=== PATIENT | female | born 1990 | race Caucasian/White ===

== ENCOUNTER 2019-09-13 17:47 | Outpatient (CLI) | payer OTHER, SELFPAY ==
--- NOTE | ~2019-09-13 | XR_ITS ---
EXAMINATION: SACRUM/COCCYX DATE: 09/13/2019 18:01 INDICATION: New onset of low back pain. Injury 2 years ago. TECHNIQUE: Three views sacrum/coccyx FINDINGS: No prior studies for comparison. There is no displaced fracture of the sacrum. The coccyx demonstrates overall normal morphology with out acute angulation. IMPRESSION: 1. No acute displaced osseous abnormality of the sacrum. Suspicion for occult or nondisplaced sacral fracture can either be evaluated with CT or MRI. 2. Grossly normal morphology to the coccyx without acute angulation. However, due to the wide range of normal variation of the coccyx, acute injury would be best evaluated by clinical examination and patient's symptoms. Reviewed, dictated and finalized at location A. ADER OPERATOR
== END 2019-09-13 17:48 | disposition home or self-care (01) ==
LOC: ANHIMG 17:51
PROVIDERS: PCP Family Medicine; Visit Provider Nurse Practitioner Family
DX: M53.3 Sacrococcygeal disorders, not elsewhere classified (principal)
CPT/HCPCS: 72220

== ENCOUNTER 2019-09-20 18:51 | Emergency (ER) | payer OTHER, SELFPAY ==
[2019-09-20 19:02] VITALS: BP 121/74; PULSE 87; RESP 16; TEMP 37.2; O2SAT 98
--- NOTE | 2019-09-20 20:01 | ED.GENADULT ---
HPI - General Adult General Chief complaint: Upper Respiratory Infection Stated complaint: sore throat michelle chills body aches Time Seen by Provider: 09/20/19 19:54 Source: patient and RN notes reviewed Mode of arrival: ambulatory Limitations: no limitations History of Present Illness HPI narrative: 29-year-old female presents with complains of sore throat, body aches, fatigue, fever and chils, dry cough, and intermittent headache (not the worst of her life) for 3 days. Ibuprofen (early this a.m.) and Tylenol (last today at 1700) with little relief. Rachael was treated at her PMD office on 09/19/19 per patient she had NEGATIVE FLU and STREP tests. Constant dry cough. Rhinorrhea and nasal congestion. Sore throat. Low-grade fever, highest 99.8 with intermittent chills. No drooling, neck or throat swelling. No chest pain, wheezing, or shortness of breath. No exacerbation factories. Denies nausea, vomiting, and abdominal pain. Tolerating liquids well. Rachael denies being , LMP 09/19/2019 and on control. Some parts of this dictation were generated by voice recognition software and may contain typographical and/or grammatical inaccuracies. Related Data Home Medications Medication Instructions Recorded Confirmed buspirone 5 mg TID 08/09/19 09/20/19 desog-e.estradiol/e.estradiol 1 tablet DAILY 08/09/19 09/20/19 [Yodit (28)] vilazodone [Viibryd] 20 mg DAILY 08/09/19 09/20/19 aripiprazole 5 mg tablet 5 mg PO DAILY 08/29/19 09/20/19 diclofenac sodium 1 % TOPICAL BID 09/20/19 09/20/19 methylprednisolone 4 mg DAILY 09/20/19 09/20/19 Allergies Allergy/AdvReac Type Severity Reaction Status Date / Time No Known Allergies Allergy Verified 09/20/19 18:54 Review of Systems Review of Systems: Narrative: CONSTITUTIONAL: Complains of low-grade fever, fatigue, intermittent chills. Denies sweats. EYES: Denies visual changes, redness, discharge. ENT: Complains of rhinorrhea, congestion, sore throat. Denies otalgia. CARDIOVASCULAR: Denies chest pain, palpitations, edema. RESPIRATORY: Denies dyspnea, wheezing. Complains of dry cough. GASTROINTESTINAL: Denies abdominal pain, nausea, vomiting, diarrhea. GENITOURINARY: Denies dysuria, hematuria, abnormal discharge. SKIN: Denies rash or itching. MUSCULOSKELETAL: Denies acute back pain, joint pain. Complains of myalgia. NEUROLOGIC: Denies numbness or focal weakness. Complains of intermittent headaches. PSYCHIATRIC: Denies anxiety or depression. All systems reviewed & are unremarkable except as noted in HPI and below PMFSH Past Medical History Medical History ADHD Depression Kidney stones Ovarian cyst Surgical History Surgical History History of urethral stent Status post surgical removal of both fallopian tubes Social History Social History Social History: Smoking status: Never smoker Second hand tobacco smoke exposure: No Alcohol intake: current Substance use: never Substance use type: does not use Gender identity (if verbalized by the patient): Female Comments At time of signature, agree with nurse past medical, surgical, social, and family history. There is no relevant family history pertinent to the presenting complaint. Exam Narrative: Exam Narrative: GENERAL: This is a well-nourished, well-developed patient, in no apparent distress. Talks in full sentences and ambulates with steady gait without dyspnea. HEAD: normocephalic, atraumatic. EYES: PERRL. Sclera clear/white. Vision is grossly intact. EARS: External ears normal, auditory canals clear and without drainage, TMs normal without perforation. Hearing grossly intact. NOSE: External nose normal with no obvious nasal discharge, nares with moderate redness and enlarged turbinates, clear rhinorrhea. THROAT
== END 2019-09-20 20:07 | disposition home or self-care (01) ==
PROVIDERS: Emergency Provider Nurse Practitioner Family; PCP Family Medicine
DX: B34.9 Viral infection, unspecified (principal)
CPT/HCPCS: 99213; G0463

== ENCOUNTER 2019-12-01 08:48 | Outpatient (CLI) | payer OTHER, SELFPAY ==
--- NOTE | ~2019-12-01 | MR_ITS ---
EXAMINATION: MR ankle LT wo con DATE: 12/01/2019 09:53 INDICATION: Plantar fascial fibromatosis TECHNIQUE: Magnetic resonance imaging (MRI) of the left ankle was performed without intravenous contr ast. Sequences included sagittal, coronal, and axial proton-density weighted fast spin echo without a nd with fat saturation. COMPARISON: None. FINDINGS: Medial ankle ligaments: Deep and superficial deltoid ligaments as well as the spring ligament are normal. Lateral ankle ligaments: The anterior and posterior inferior tibiofibular ligaments are normal. The anterior talofibular, calc aneofibular and posterior talofibular ligaments are normal. Tendons: Mild thickening and increased signal in the distal Achilles tendon consistent mild tendinosis without discrete tear. The peroneus longus and brevis tendons are normal. The tibialis anterior and extensor hallucis longus and extensor digitorum longus tendons are normal. The tibialis posterior, flexor dig itorum longus and flexor hallucis longus tendons are normal. Plantar fascia: Mild soft tissue edema and minimal marrow edema surrounding the calcaneal origin of the proximal plan tar aponeurosis consistent with mild acute plantar fasciitis. The aponeurosis appears otherwise antonio l with no tear, thickening or significant increased intrasubstance signal. Bones/other: Bone alignment is normal. No fracture or pathologic marrow replacing process. Joint spaces are normal . Fluid: Physiologic amount fluid in the joint spaces. No bursitis or other abnormal fluid collections. IMPRESSION: 1. Mild acute plantar fasciitis without discrete tear or fibromatosis. 2. Mild distal Achilles tendinosis also without discrete tear. Reviewed, dictated and finalized at location A.
== END 2019-12-01 08:49 | disposition home or self-care (01) ==
PROVIDERS: PCP Family Medicine; Visit Provider Student in an Organized Health Care Education/Training Program
DX: M72.2 Plantar fascial fibromatosis (principal); M25.572 Pain in left ankle and joints of left foot; M79.672 Pain in left foot
CPT/HCPCS: 73721

== ENCOUNTER 2020-01-20 01:50 | Emergency (ER) | payer OTHER, SELFPAY ==
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
[2020-01-20 01:51] VITALS: BP 126/78; PULSE 98; RESP 18; TEMP 36.8; O2SAT 99
--- NOTE | 2020-01-20 01:58 | PC.NURSE ---
C-collar in place
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
[2020-01-20 03:00] VITALS: BP 127/87; PULSE 88; RESP 13; O2SAT 98
== END 2020-01-20 03:00 | disposition home or self-care (01) ==
PROVIDERS: Emergency Provider Emergency Medicine; PCP Family Medicine
DX: M54.2 Cervicalgia (principal); M54.6 Pain in thoracic spine; S69.91XA Unspecified injury of right wrist, hand and finger(s), initial encounter; F32.9 Major depressive disorder, single episode, unspecified; F90.9 Attention-deficit hyperactivity disorder, unspecified type; Z87.442 Personal history of urinary calculi; W16.022A Fall into swimming pool striking bottom causing other injury, initial encounter; W16.012A Fall into swimming pool striking water surface causing other injury, initial encounter
CPT/HCPCS: 72125; 72128; 73130; 99284; L0140

== ENCOUNTER 2021-03-23 20:37 | Emergency (ER) | payer OTHER, SELFPAY ==
[2021-03-23 20:39] VITALS: BP 136/71; PULSE 100; RESP 16; TEMP 36.6; O2SAT 100
--- NOTE | 2021-03-23 22:59 | ED.SKABFB ---
HPI - Skin/Abscess/Foreign Bdy General Chief complaint: Skin/Abscess/Foreign Body Stated complaint: large bump in bikini area Time Seen by Provider: 03/23/21 22:00 Source: patient and RN notes reviewed Mode of arrival: ambulatory Limitations: no limitations History of Present Illness HPI narrative: This is a 31 year old female who presents for evaluation of possible cyst. Patient states 1 week ago she noticed small bump to right inguinal area. She reports it has gotten slightly bigger and it is mild tender. She thinks it is ingrown hair. She denies drainage, nausea, vomiting or fever . Related Data Home Medications Medication Instructions Recorded Confirmed buspirone 5 mg TID 08/09/19 09/20/19 desog-e.estradiol/e.estradiol 1 tablet DAILY 08/09/19 09/20/19 [Viorele (28)] vilazodone [Viibryd] 20 mg DAILY 08/09/19 09/20/19 aripiprazole 5 mg tablet 5 mg PO DAILY 08/29/19 09/20/19 dextroamphetamine-amphetamine PO 01/20/20 [Adderall XR] Allergies Allergy/AdvReac Type Severity Reaction Status Date / Time No Known Allergies Allergy Verified 01/29/20 15:59 Review of Systems Review of Systems: All systems reviewed & are unremarkable except as noted in HPI and below PMFSH Past Medical History Medical History (Updated 03/24/21 @ 00:19 by Paty Chen MD) ADHD Depression Kidney stones Ovarian cyst Surgical History Surgical History History of urethral stent Status post surgical removal of both fallopian tubes Social History Social History (Updated 01/29/20 @ 16:01 by Dayana Reilly) Social History: Smoking status: Never smoker Second hand tobacco smoke exposure: No Alcohol intake: current Drinks per week: 2 Alcohol use details: twice a month Substance use: never Substance use type: does not use Gender identity (if verbalized by the patient): Female Exam Const: General: no acute distress and alert Orientation/consciousness: patient oriented x3 Eyes: EOM: EOMs intact bilaterally Resp: Effort & Inspection: normal respiratory effort Skin: Other: right inner thigh, groin with small lump sub centimeter, no drainage, no erythema, Neuro: General: patient oriented x3, moves all extremities and CN's II-XI intact bilaterally Course Reevaluation(s) Reevaluation #1: I discussed with patient no abscess drainage found. I Discussed discharge management with warm compressess Date: 03/24/21 Time: 00:15 Vital Signs Vital signs: Vital Signs Temperature 97.9 F 03/23/21 20:39 Pulse Rate 100 03/23/21 20:39 Respiratory Rate 16 03/23/21 20:39 Blood Pressure 136/71 03/23/21 20:39 Pulse Oximetry 100 03/23/21 20:39 Temperature 97.9 F 03/23/21 20:39 Pulse Rate 100 03/23/21 20:39 Respiratory Rate 16 03/23/21 20:39 Blood Pressure 136/71 03/23/21 20:39 Pulse Oximetry 100 03/23/21 20:39 Procedures Abscess I/D other: Date of Incision: 03/24/21 Time of Incision: 00:15 Side (if applicable): right Local Anesthetic: lidocaine 1% and with epi Amount of anesthesia used (mL): 1 Technique: incised with #11 blade Amount of fluid expressed (mL): 1 Irrigation: No Packing used?: none I&D Results: Blood Discharge Plan Discharge Clinical Impression: Cyst of skin Patient Disposition: Home, Self-Care Condition: Stable Instructions: Antibiotic Form, Incision and Drainage (ED) Additional Instructions: Today you have an incision and drainage performed. Please read instructions. Change bandage daily as needed. No sign of infection at this time. Take ibuprofen as needed for pain. Apply warm compresses twice daily. Prescriptions: No Action aripiprazole [Abilify] 5 mg tablet 5 mg PO DAILY RF: 0 carisoprodol [Soma] 350 mg tablet 350 mg PO .bid PRN (Reason: muscle pain) Qty: 30 RF: 0 busp
[2021-03-24] MEDS: POVIDONE-IODINE 10% SOLUTION 118 ML BOTTLE TOPICAL (00:17)
[2021-03-24] MEDS: LIDO 1%/EPINEPHRINE 1:100,000 20 ML VIAL INFILTRATE (00:17)
== END 2021-03-24 00:28 | disposition home or self-care (01) ==
PROVIDERS: Emergency Provider General Practice; PCP Family Medicine
DX: L72.3 Sebaceous cyst (principal); F90.9 Attention-deficit hyperactivity disorder, unspecified type; F32.9 Major depressive disorder, single episode, unspecified; Z87.442 Personal history of urinary calculi
CPT/HCPCS: 10060; 99283

== ENCOUNTER 2021-05-01 05:10 | Observation (INO) | payer OTHER, SELFPAY ==
[2021-05-01] VITALS (12 sets, daily range): BP systolic 104–146; BP diastolic 64–90; PULSE 69–123; RESP 11–20; TEMP 36.4–37.1; O2SAT 95–100; BMI 32.0
--- NOTE | 2021-05-01 05:13 | ECG_ITS ---
Measurements Intervals [place] Rate: 111 P: 47 VA: 117 QRS: 85 QRSD: 94 T: -14 QT: 347 QTc: 473 Interpretive Statements SINUS TACHYCARDIA WITH SHORT VA INTERVAL LEFT ATRIAL ENLARGEMENT BORDERLINE ST-T WAVE ABNORMALITY- ANTEROLAT/INF LEADS BASELINE ARTIFACT- V1-V2, V4 ABNORMAL ECG Electronically Signed On 05-01-2021 5:58:52 CDT by Francisco Javier Shaw D.O.
--- NOTE | 2021-05-01 05:20 | PC.NURSE ---
Jess[facility] @ Poison Control Subtoxic on Tylenol - 6gm Toxic on Soma - 3200mg - peak 2-6 hours Subtoxic on Toradol - 45 min peak Subtoxic on Codeine - peak 1 hour, half life is 3 hours Symptomatic Support only Repeat Tylenol Level 0730
--- NOTE | 2021-05-01 05:24 | PC.NURSE ---
Pt valuables stored in ED locked cabinet. Jewelry, clothes, phone, purse.
--- NOTE | 2021-05-01 05:24 | ED.GENADULT ---
HPI - General Adult General Chief complaint: Overdose Stated complaint: suicidal attempt - ingestion History of Present Illness HPI narrative: Patient 31-year-old female presents the emergency department with chief complaint of overdose. The patient reports that she took a number of Tylenol 3 Soma and Toradol. Patient states she took this about 3:30 in the morning in an attempt to harm herself. The patient left a note to her family and EMS was called. Upon EMS arrival the patient was slightly drowsy but protecting her airway. Patient is able to answer some questions Related Data Home Medications Medication Instructions Recorded Confirmed buspirone 5 mg TID 08/09/19 09/20/19 desog-e.estradiol/e.estradiol 1 tablet DAILY 08/09/19 09/20/19 [Viorele (28)] vilazodone [Viibryd] 20 mg DAILY 08/09/19 09/20/19 aripiprazole 5 mg tablet 5 mg PO DAILY 08/29/19 09/20/19 dextroamphetamine-amphetamine PO 01/20/20 [Adderall XR] Allergies Allergy/AdvReac Type Severity Reaction Status Date / Time No Known Allergies Allergy Verified 05/01/21 05:48 Review of Systems Review of Systems: A 10 system review of systems was completed on the patient and is negative except for what is stated in the HPI. Nursing and ancillary documentation was reviewed. [facility] Past Medical History Medical History (Updated 05/01/21 @ 06:40 by Misael Guadarrama MD) ADHD Depression Kidney stones Ovarian cyst Surgical History Surgical History History of urethral stent Status post surgical removal of both fallopian tubes Social History Social History Social History: Smoking status: Never smoker Second hand tobacco smoke exposure: No Alcohol intake: current Drinks per week: 2 Alcohol use details: twice a month Substance use: never Substance use type: marijuana Gender identity (if verbalized by the patient): Female Exam Narrative: GENERAL: Well-appearing, well-nourished, and in no acute distress. HEAD: Normocephalic, atraumatic. EYES: PERRLA and EOMI. ENT: Nares clear, no rhinorrhea or epistaxis. Mucous membranes moist. NECK: Supple. CHEST: Clear to auscultation. No respiratory distress. HEART: Regular rate and rhythm. No murmur heard. Normal peripheral pulses. ABDOMEN: Soft, nontender, nondistended, normal active bowel sounds. EXTREMITIES: Normal range of motion. No edema. SKIN: Warm, dry, no rash. NEURO: No focal deficits. Alert and oriented x3. PSYCH: Depressed mood. Course Vital Signs Vital signs: Vital Signs Temperature 37.1 C 05/01/21 05:07 Pulse Rate 123 H 05/01/21 05:07 Respiratory Rate 15 05/01/21 05:07 Blood Pressure 104/90 05/01/21 05:07 Pulse Oximetry 96 05/01/21 05:07 Temperature 37.1 C 05/01/21 05:07 Pulse Rate 123 H 05/01/21 05:07 Respiratory Rate 16 05/01/21 05:07 Blood Pressure 104/90 05/01/21 05:07 Pulse Oximetry 96 05/01/21 05:07 Medical Decision Making Vital Signs Vital Signs: Vital Signs Temperature 37.1 C 05/01/21 05:07 Pulse Rate 123 H 05/01/21 05:07 Respiratory Rate 15 05/01/21 05:07 Blood Pressure 104/90 05/01/21 05:07 Pulse Oximetry 96 05/01/21 05:07 Temperature 37.1 C 05/01/21 05:07 Pulse Rate 123 H 05/01/21 05:07 Respiratory Rate 16 05/01/21 05:07 Blood Pressure 104/90 05/01/21 05:07 Pulse Oximetry 96 05/01/21 05:07 Lab Data Result diagrams: 05/01/21 06:06 05/01/21 06:06 Labs: Lab Results 05/01/21 05/01/21 05/01/21 Range/Units 06:06 06:06 06:06 WBC 8.4 (4.5-10.0) K/mm3 RBC 5.07 (4.2-5.4) M/mm3 Hgb 14.2 (12.0-15.0) g/dL Hct 45.1 (37.0-47.0) % MCV 89.0 (80-100) fl MCH 28.0 (26-34) pg MCHC 31.5 L (32-36) g/dl RDW 12.6 (11.5-14.5) % Plt Count 246 (150-375) k/mm3 MPV 9.8
[2021-05-01 06:21] LABS: Basophils Percent Auto 0.5 % (0.2-1.2); Eosinophils Absolute Auto 0.2 K/mm3 (0-0.3); Eosinophils Percent Auto 1.8 % (0-4.4); Hematocrit 45.1 % (37.0-47.0); Hemoglobin 14.2 g/dL (12.0-15.0); Immature Granulocyte Absolute 0.03 K/mm3 (0.00-0.031); Immature Granulocyte Percent A 0.4 % (0-0.5); Lymphocytes Absolute Auto 3.61 K/mm3 (0.9-3.2); Lymphocytes Percent Auto 42.8 % (18.3-44.2); Mean Corpuscular HGB Conc 31.5 g/dl (32-36); Mean Platelet Volume 9.8 fl (7.4-10.4); Monocytes Absolute Auto 0.5 K/mm3 (0.1-0.6); Monocytes Percent Auto 6.2 % (2.6-8.5); Neutrophils Absolute Auto 4.1 K/mm3 (1.3-6.7); Neutrophils Percent Auto 48.3 % (45.5-73.1); Platelet Count Result 246 k/mm3 (150-375); Red Blood Count 5.07 M/mm3 (4.2-5.4); Red Cell Distribution Width 12.6 % (11.5-14.5); White Blood Count 8.4 K/mm3 (4.5-10.0)
[2021-05-01 06:33] LABS: Alanine Aminotransferase 26 U/L (4-35); Albumin Level 4.4 g/dL (3.5-5.1); Alkaline Phosphatase 97 U/L (38-126); Anion Gap 11 mmol/L (8-16); Aspartate Amino Transferase 31 U/L (14-36); Bilirubin,Total 0.9 mg/dL (0.2-1.3); Blood Urea Nitrogen 14 mg/dL (7-17); Calcium 8.9 mg/dL (8.4-10.2); Carbon Dioxide 23 mmol/L (22-30); Chloride 102 mmol/L (98-107); Estimated CRCL calculation 91 ml/min; Estimated Glomerular Filt Rate > 60; Glucose 105 mg/dL (65-110); Potassium 3.7 mmol/L (3.4-5.0); Sodium 136 mmol/L (137-145)
[2021-05-01 06:34] LABS: Acetaminophen 42 ug/mL (10-30); Ethanol < 10 mg/dL (<10); Salicylate < 1.0 mg/dL (2-20)
[2021-05-01 06:53] LABS: Add Urine Microscopic? NO; Appearance Urine Clear (Clear); Bilirubin Urine Negative (Negative); Blood Urine Negative (Negative); Color Urine Yellow (Yellow); Glucose Urine UA Negative (Negative); Ketones Urine Negative (Negative); Leukocyte Esterase Ur Negative LEU/UL (Negative); Nitrate Urine Negative (Negative); Protein Urine Negative (Negative); Specific Grav Ur 1.029 (1.001-1.035); Urobilinogen Urine Negative mg/dL (<2.0)
[2021-05-01 07:09] LABS: Amphetamine Screen Urine Positive (Negative); Barbiturate Screen Urine Negative (Negative); Benzodiazepines Screen Urine Negative (Negative); Cannabinoid Screen Urine Positive (Negative); Cocaine Screen Urine Negative (Negative); Methadone Screen Urine Negative (Negative); Opiate Screen Urine Positive (Negative); Phencyclidine Screen Urine Negative (Negative)
--- NOTE | 2021-05-01 08:27 | PC.NURSE ---
CALL RECEIVED FROM [facility] WITH POISON CONTROL. UPDATES AND LABS REVIEWED. RECOMMENDS REPEAT TYLENOL LEVEL IN THE NEXT COUPLE HOURS TO ENSURE NUMBER IS TRENDING DOWN
--- NOTE | 2021-05-01 09:30 | PC.NURSE ---
pt swabbed for covid for psych placement
--- NOTE | 2021-05-01 09:40 | PM.IMHP ---
H&P: HPI History of Present Illness Date/Time: 05/01/21 09:40 Chief Complaint: Suicide attempt Narrative: Patient is a 31-year-old lady with past medical history of depression, and 1 suicide attempt which was 14 years old presenting following a suicide attempt. She says that she has been very stressed recently, had a Marriage fell apart, and was recently told that she had an STD, which she was not prepared to here, all this caught up to her last night, when she decided to attempt suicide. Did not have any homicidal ideation. Did not have any visual or auditory hallucinations. She took an unknown quantity of Tylenol, she says maybe was about 10 pills or so at around 3:30 a.m. this morning. She also took an unknown quantity of Toradol. Following this, she felt very drowsy, and came to the emergency room at [facility]. Denies any other symptoms, including shortness of breath, chest pain, headache, nausea vomiting, abdominal pain, urinary symptoms, fevers or chills. Past medical history: Significant for depression and prior suicide attempt Allergies: Anaphylactic reaction to nuts Medications: Vilazadone, Wellbutrin, Adderall Family history: Not aware of major problems running in family Social history: Smokes marijuana, denies cocaine heroin or meth. Occasional alcohol, a couple drinks a week. Denies tobacco use. Denies ever having used tobacco. 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 Family is nearby, including ex-, and children. Also has sister in the area, and another 1 in [place]. Surgical history: Fallopian tubes tied, breast augmentation, bunionectomy ER course: Vital signs unremarkable, except for slight tachycardia with heart rate to the low 100s Labs: No leukocytosis, no anemia, no kidney or liver injury, urinalysis unremarkable, urine drug screen showing opiates, amphetamines, cannabinoids, acetaminophen level 42 approximately 3 hours after ingestion, and 30 about 7 hours after ingestion. Review of Systems Review of Systems: All systems reviewed & are unremarkable except as noted in HPI and below PMFSH Past Medical History Medical History (Updated 05/01/21 @ 06:40 by Misael Guadarrama MD) ADHD Depression Kidney stones Ovarian cyst Surgical History Surgical History History of urethral stent Status post surgical removal of both fallopian tubes Social History Social History Social History: Smoking status: Current every day smoker Tobacco type: e-cigarettes/vaping Second hand tobacco smoke exposure: No Additional smoking assessment comments: vapes marijuana Alcohol intake: current Drinks per week: 2 Alcohol use details: twice a month Substance use: never Substance use type: marijuana, painkillers and prescription drug Gender identity (if verbalized by the patient): Female Spiritual care concerns: No Meds Home Medications and Allergies Home Medications Medication Instructions Recorded Confirmed Type buspirone 5 mg TID 08/09/19 09/20/19 History desog-e.estradiol/e.estradiol 1 tablet DAILY 08/09/19 09/20/19 History [Viorele (28)] vilazodone [Viibryd] 20 mg DAILY 08/09/19 09/20/19 History aripiprazole 5 mg tablet 5 mg PO DAILY 08/29/19 09/20/19 History dextroamphetamine-amphetamine PO 01/20/20 History [Adderall XR] carisoprodol 350 mg tablet 350 mg PO .bid PRN #30 tablet 01/29/20 01/29/20 Rx dexamethasone 2 mg tablet See Rx Instructions PO BID #30 07/23/20 Rx tablet Allergies Allergy/AdvReac Type Severity Reaction Status Date / Time No Known Allergies Allergy Verified 05/01/21 05:48 Vital Signs Vital Signs - 24 hr 05/01/21 05:07 05/01/21 06:40 05/01/21 07:45 Temperature 98.7 F Pulse Rate 123 H 93 104 H Respiratory Rate 16 11 L 20 Blood Pressure 104/90 105/6
--- NOTE | 2021-05-01 09:44 | ADMGEN ---
This patient, Rachael Robles, was admitted to Intensive Care Unit-1. Patient/family oriented to hospital policies and general routines including ID bracelet, bed and alarms, visiting hours, pain management, procedures, bathroom and other care routines, personal items, smoking policy, room service/diet, and visiting hours. Information on how to activate the Rapid Response Team has been discussed. Patient/Family are encouraged to report perceived risks to care and to ask questions if they do not understand what they are told or what they should do.
[2021-05-01] MEDS: SODIUM CHLORIDE 0.9% IV 1,000 ML 999 ML IV CONT ×3 (09:48→10:56)
[2021-05-01 10:16] LABS: Acetaminophen 30 ug/mL (10-30)
--- NOTE | 2021-05-01 11:42 | WPDCNINT ---
Assessment and Plan Assessment and plan (1) Polysubstance overdose: Qualifiers: Encounter type: initial encounter Injury intent: intentional self-harm Qualified Code(s): T50.902A - Poisoning by unspecified drugs, medicaments and biological substances, intentional self-harm, initial encounter Code(s): T50.901A - Poisoning by unspecified drugs, medicaments and biological substances, accidental (unintentional), initial encounter Status: Acute Assessment and Plan: Patient with polysubstance overdose with Tylenol#3, Toradol and Soma -initial acetaminophen levels are 42 and repeat levels are normal -poison control was notified and patient was not a candidate for acetylcystine protocol -NSAID ingestion with Toradol will give patient 3 L of IV fluids and allow to flush her kidneys -Soma will probably cause sedation, will continue to monitor any respiratory depression, hypotension. Patient in telemetry -once patient is medically stable she will require care coordination crisis management evaluation (2) Suicidal behavior: Code(s): R45.89 - Other symptoms and signs involving emotional state Status: Acute Assessment and Plan: Suicidal behavior with polysubstance abuse as a above -care coordination and crisis management to evaluate once medically stable (3) Depression: Code(s): F32.9 - Major depressive disorder, single episode, unspecified Status: Acute Assessment and Plan: History of depression (4) ADHD: Code(s): F90.9 - Attention-deficit hyperactivity disorder, unspecified type Status: Acute Assessment and Plan: History of ADHD Additional Plan DVT prophylaxis: SCDs Discussed with patient updated with her condition and plan of care. Code status: Full code Critical care time spent: 41 minutes This dictation may have been done utilizing a voice recognition system. Attempts have been made to correct errors. However, there may be uncorrected grammatical, spelling, and recognition errors present. Due to a high probability of clinically significant, life threatening deterioration, the patient required my highest level of preparedness to intervene emergently and I personally spent this critical care time directly and personally managing the patient. This critical care time included obtaining a history; examining the patient; pulse oximetry; ordering and review of studies; arranging urgent treatment with development of a management plan; evaluation of patient's response to treatment; frequent reassessment; and discussions with other providers. It was exclusive of separately billable procedures and treating other patients and teaching time. Please see Assessment and Plan section and the rest of the note for further information on patient assessment and treatment Clinical Document Improvement Educator Consult Note Consult date: 05/01/21 Time Seen: 09:33 HPI: Rachael Robles is a 31 year old female increase medical history of ADHD, depression with suicide attempt x1 when she was 14 years old presented the ED on 05/01/2021 with polysubstance overdose and suicidal behavior. Patient stated she has been recently stressed on the to the manage from a heart and as she was told she had any STD history stent and tried to commit suicide. The patient is not homicidal. Patient stated she took Tylenol #3 x10 pills, Toradol x 5-6 pills, Soma x8 pills. Patient was drowsy upon arrival to the ER at [facility]. She denies chest pain, shortness of breath, abdominal pain, nausea, vomiting, fevers or chills. Patient states she vapes marijuana, drinks couple of times week. Denies use of any other illicit drugs. patient seen and examined the ICU, above history was obtained by myself. Patient is awake, alert but somnolent. She knows she is in the hospital she knows it is 2020 and she knew Mr. Osorio in the his the president of the [place]. Review of Systems Review of Systems: All systems r
[2021-05-01] MEDS: SODIUM CHLORIDE 0.9% IV 1,000 ML 125 ML IV CONT (13:33)
[2021-05-01] MEDS: ONDANSETRON INJ 4 MG/2 ML VIAL (13:52)
[2021-05-01 19:38] LABS: SARS-CoV-2 RNA PCR Negative
--- NOTE | 2021-05-01 20:30 | PC.NURSE ---
Addendum entered by Echo Faria RN 05/02/21 20:26: Patient verbalizing concerns for childcare because she works 12 hour shifts and has her children on her off days. Encouraged patient to try to relax and focus on her own well-being at this time. Patient having nausea and vomiting. Explained that per hospitalist order this RN has order for IM injection only for anti-emetic medication due to concerns for QT prolongation by hospitalist. Encouraged patient to call this RN if N/V worsened and MD would be contacted to reevaluate. Patient did not want IM injection at this time and is agreeable to plan of care. Original Note: At patient bedside. Explained to patient that crisis and a medicaid billing clerk would come to evaluate her tomorrow and at that time it would be determined what her plan of care would be at that point. Patient states that she feels like a prisoner and doesn't understand why she cannot talk to her children. This RN explained that per hospital policy she cannot make any calls while awaiting clearance for si. Patient alert & oriented asking if this hospital is an [facility] facility.
--- NOTE | 2021-05-01 23:30 | PC.NURSE ---
At patient bedside. CCT stated that patient was asking about her purse an earrings. This RN offered to look in the locked closet, but explained to patient that she cannot be granted access to belongings per hospital SI policy. Patient tearful and guarded stating that It's fine. I'm leaving tomorrow anyway. This RN reminded patient as per earlier conversation that crisis would be out to evaluate her tomorrow to determine options for treatment.
[2021-05-02] MEDS: SODIUM CHLORIDE 0.9% IV 1,000 ML 125 ML IV CONT (00:51)
[2021-05-02 04:23] LABS: Basophils Percent Auto 0.3 % (0.2-1.2); Eosinophils Absolute Auto 0.1 K/mm3 (0-0.3); Eosinophils Percent Auto 2.1 % (0-4.4); Hematocrit 39.6 % (37.0-47.0); Hemoglobin 12.3 g/dL (12.0-15.0); Immature Granulocyte Absolute 0.02 K/mm3 (0.00-0.031); Immature Granulocyte Percent A 0.3 % (0-0.5); Lymphocytes Absolute Auto 2.75 K/mm3 (0.9-3.2); Lymphocytes Percent Auto 41.2 % (18.3-44.2); Mean Corpuscular HGB Conc 31.1 g/dl (32-36); Mean Corpuscular Hemoglobin 28.1 pg (26-34); Mean Corpuscular Volume 90.4 fl (80-100); Monocytes Absolute Auto 0.4 K/mm3 (0.1-0.6); Monocytes Percent Auto 6.3 % (2.6-8.5); Neutrophils Absolute Auto 3.3 K/mm3 (1.3-6.7); Neutrophils Percent Auto 49.8 % (45.5-73.1); Platelet Count Result 173 k/mm3 (150-375); Red Blood Count 4.38 M/mm3 (4.2-5.4); Red Cell Distribution Width 12.7 % (11.5-14.5); White Blood Count 6.7 K/mm3 (4.5-10.0)
[2021-05-02 04:39] LABS: Alanine Aminotransferase 20 U/L (4-35); Alkaline Phosphatase 79 U/L (38-126); Anion Gap 4 mmol/L (8-16); Aspartate Amino Transferase 25 U/L (14-36); Bilirubin,Total 0.1 mg/dL (0.2-1.3); Blood Urea Nitrogen 6 mg/dL (7-17); Carbon Dioxide 24 mmol/L (22-30); Chloride 110 mmol/L (98-107); Estimated CRCL calculation 106 ml/min; Estimated Glomerular Filt Rate > 60; Glucose 97 mg/dL (65-110); Magnesium 1.9 mg/dL (1.6-2.3); Phosphorus 3.2 mg/dL (2.5-4.5); Potassium 4.1 mmol/L (3.4-5.0); Sodium 138 mmol/L (137-145)
[2021-05-02] MEDS: HALOPERIDOL LACTATE 5 MG/ML VIAL IM (05:00)
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
[2021-05-02] MEDS: diphenhydrAMINE HCl INJ 50 MG/ML VIAL 25 MG IV PUSH (05:34)
[2021-05-02] MEDS: LORazepam INJ (*CRX) 2 MG/ML VIAL 1 MG IM (05:34)
[2021-05-02 05:36] VITALS: BP 136/90; PULSE 83; RESP 18; TEMP 36.5; O2SAT 98
--- NOTE | 2021-05-02 06:18 | PM.EVENT ---
Event Note Event Note Event Note: Patient has been released from hard restraints she has verbalized has no intention to hurt herself or others. Patient with no injuries she is awake and alert. Sitter 1:1 at all times
[2021-05-02 08:00] VITALS: RESP 16
--- NOTE | 2021-05-02 09:01 | PC.NURSE ---
Addendum entered by Onesimo Rodas RN 05/02/21 09:19: Velasquez stated she was cleared after we received her 2nd tylenol level that had declined at 0943 Original Note: Spoke with Velasquez at Poison Control and states they had signed off on the case yesterday as her Tylenol levels were subtoxic and never required medical intervention.
[2021-05-02 16:00] VITALS: BP 108/82; PULSE 88; RESP 14; TEMP 36.1; O2SAT 98
--- NOTE | 2021-05-02 18:29 | PM.TDS ---
Transfer Discharge Sum: Prov Provider Date of admission: 05/01/21 07:34 Primary care physician: Sofia Scanlon MD Admitting clinician: Concetta Laguerre MD Consults: 05/01/21 07:18 Consult to Physician Routine Comment: Consulting Provider: Ashlie Herrera Reason for consultation: ICU patient, poly substance overdose Has provider been notified: Yes DS: Admitting Diagnosis Discharge Date 05/02/2021 Admitting Diagnosis Suicide attempt Depression ADHD Kidney stones Ovarian cysts DS: Discharge Diagnosis Discharge Diagnosis (1) Polysubstance overdose: Qualifiers: Encounter type: initial encounter Injury intent: intentional self-harm Qualified Code(s): T50.902A - Poisoning by unspecified drugs, medicaments and biological substances, intentional self-harm, initial encounter Code(s): T50.901A - Poisoning by unspecified drugs, medicaments and biological substances, accidental (unintentional), initial encounter Status: Acute Assessment and Plan: Poison control was contacted. Supportive are. She took tylenol 10 pills and an unknown quantity of toradol. (2) Suicidal ideation: Code(s): R45.851 - Suicidal ideations Status: Acute Assessment and Plan: Patient had recent life stressors and had a suicidal gesture. She decided to attempt suicide. She denies homocidal attempt. 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 (5) ADHD: Code(s): F90.9 - Attention-deficit hyperactivity disorder, unspecified type Status: Acute Assessment and Plan: Manage per primary care. currently psychostimulants were held due to acute stress. Transfer Discharge Sum: Med Medications Active and Home Medications: Home Medications desog-e.estradiol/e.estradiol [Viorele (28)] 1 tablet DAILY 08/09/19 [History Confirmed 05/01/21] dextroamphetamine-amphetamine [Adderall XR] 20 mg PO QAM 01/20/20 [History Confirmed 05/01/21] bupropion HCl 150 mg PO QAM 05/01/21 [History Confirmed 05/01/21] omeprazole 40 mg PO BID 05/01/21 [History Confirmed 05/01/21] valacyclovir 1 mg PO BID 05/01/21 [History Confirmed 05/01/21] Active Medications Haloperidol (Haloperidol 5 Mg Tablet) 5 mg PO Q6H PRN PRN Reason: Agitation Sodium Chloride (Normal Saline Iv) 1,000 mls @ 125 mls/hr IV CONT .Q8H SUNNI Last Admin: 05/02/21 00:51 Dose: 125 mls/hr Documented by: Lorazepam (Lorazepam (*Crx) 1 Mg Tablet) 1 mg PO Q4H PRN PRN Reason: Anxiety Trimethobenzamide HCl (Trimethobenzamide Hcl 200 Mg/2 Ml Vial) 200 mg IM Q6H PRN PRN Reason: Nausea And Vomiting Transfer Discharge Sum: Hosp Hospital Course Hospital course: Rachael Robles is a 31-year-old lady with past medical history of depression, and 1 suicide attempt which was 14 years old presenting following a suicide attempt. She says that she has been very stressed recently, after her marriage fell apart, and was recently told that she had an STD, which she was not prepared to hear, all this caught up to her last night, when she decided to attempt suicide. Did not have any homicidal ideation. Did not have any visual or auditory hallucinations. She took an unknown quantity of Tylenol, she says maybe was about 10 pills or so at around 3:30 a.m. this morning. She also took an unknown quantity of Toradol. Following this, she felt very drowsy, and came to the emergency room at [facility]. Denies any other symptoms, including shortness of breath, chest pain, headache, nausea vomiting, abdominal pain, urinary symptoms, fevers or chills.
--- NOTE | 2021-05-02 19:04 | PC.NURSE ---
Gave report to Maritza, nurse at [place], Dr. Rodriguez is the accepting doctor. Pt informed of planned transfer to [place], room 205 and agrees to the transfer
--- NOTE | 2021-05-02 20:16 | PC.NURSE ---
Pt picked up by ambulance for transport to [place] at 2012.
--- NOTE | 2021-05-02 20:20 | PC.NURSE ---
[facility] ([phone]) notified that pt has left via EMS at 2013.
== END 2021-05-02 20:13 ==
LOC: ANHED 06:40 → ANHICU 11:36
PROVIDERS: Internal Medicine; Admitting Provider Internal Medicine; Emergency Provider Emergency Medicine; PCP Family Medicine; Visit Provider Internal Medicine
DX: T39.1X2A Poisoning by 4-Aminophenol derivatives, intentional self-harm, initial encounter (principal); T39.012A Poisoning by aspirin, intentional self-harm, initial encounter; R45.851 Suicidal ideations; F32.9 Major depressive disorder, single episode, unspecified; F17.290 Nicotine dependence, other tobacco product, uncomplicated; F90.9 Attention-deficit hyperactivity disorder, unspecified type; Z20.822 Contact with and (suspected) exposure to COVID-19
CPT/HCPCS: 36415; 51701; 80053; 80307; 81003; 81025; 83735; 84100; 84443; 85025; 93005; 96361; 96372; 96374; 99285; C9803; G0378; J1200; J1630; J2060; J2405; J7030; U0003; U0005

== ENCOUNTER 2021-08-17 22:43 | Emergency (ER) | payer OTHER, SELFPAY ==
--- NOTE | 2021-08-17 23:00 | PC.NURSE ---
[facility] ACTIVATED AT THIS TIME.
--- NOTE | 2021-08-17 23:01 | PC.NURSE ---
CALL FOR HELP NOTIFIED AT THIS TIME.
[2021-08-17 23:05] VITALS: BP 135/82; PULSE 92; RESP 18; TEMP 36.8; O2SAT 100
--- NOTE | 2021-08-17 23:20 | PC.NURSE ---
EDP Dr Moran at bedside to assess pt/discuss POC.
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
--- NOTE | 2021-08-17 23:47 | PC.NURSE ---
Call for Help advocate - Ese at pt bedside.
--- NOTE | 2021-08-18 00:03 | PC.NURSE ---
Mariam Johnson arrived to ED and introduced to pt at this time.
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
[2021-08-18] MEDS: ONDANSETRON HCL ODT 4 MG TABLET PO (04:10)
[2021-08-18] MEDS: LIDOCAINE HCL 1% LOCAL INJ 20 ML VIAL 2.1 ML XX (04:10)
[2021-08-18] MEDS: cefTRIAXone 1 GM VIAL 0.5 GM IM (04:10)
[2021-08-18] MEDS: DOXYCYCLINE HYCLATE 100 MG TABLET PO (04:10)
[2021-08-18 04:27] LABS: Basophils Absolute Auto 0.1 K/mm3 (0.0-0.1); Basophils Percent Auto 0.6 % (0.2-1.2); Eosinophils Absolute Auto 0.2 K/mm3 (0-0.3); Eosinophils Percent Auto 2.1 % (0-4.4); Hemoglobin 12.7 g/dL (12.0-15.0); Immature Granulocyte Absolute 0.03 K/mm3 (0.00-0.031); Immature Granulocyte Percent A 0.3 % (0-0.5); Lymphocytes Absolute Auto 4.07 K/mm3 (0.9-3.2); Lymphocytes Percent Auto 40.7 % (18.3-44.2); Mean Corpuscular HGB Conc 32.6 g/dl (32-36); Mean Corpuscular Volume 86.1 fl (80-100); Mean Platelet Volume 9.5 fl (7.4-10.4); Monocytes Absolute Auto 0.7 K/mm3 (0.1-0.6); Neutrophils Absolute Auto 4.9 K/mm3 (1.3-6.7); Neutrophils Percent Auto 49.3 % (45.5-73.1); Platelet Count Result 269 k/mm3 (150-375); Red Blood Count 4.53 M/mm3 (4.2-5.4); Red Cell Distribution Width 12.6 % (11.5-14.5)
[2021-08-18 04:35] LABS: INR 1.2; Prothrombin Time 14.9 Seconds (11.1-14.7)
[2021-08-18 04:36] LABS: Partial Thromboplastin Time 32.3 SECONDS (22.3-36.8)
[2021-08-18 04:47] LABS: Alanine Aminotransferase 18 U/L (4-35); Alkaline Phosphatase 92 U/L (38-126); Anion Gap 10 mmol/L (8-16); Aspartate Amino Transferase 22 U/L (14-36); Bilirubin,Total 0.5 mg/dL (0.2-1.3); Blood Urea Nitrogen 14 mg/dL (7-17); Calcium 9.1 mg/dL (8.4-10.2); Carbon Dioxide 22 mmol/L (22-30); Chloride 105 mmol/L (98-107); Estimated CRCL calculation 82 ml/min; Estimated Glomerular Filt Rate > 60; Glucose 102 mg/dL (65-110); Potassium 3.8 mmol/L (3.4-5.0); Sodium 137 mmol/L (137-145)
[2021-08-18] MEDS: EMTRICITABINE-TENOFOVIR 100 MG-150 MG TABLET 2 TAB PO (04:51)
[2021-08-18] MEDS: RALTEGRAVIR 400 MG TABLET PO (04:51)
[2021-08-18 05:17] VITALS: BP 115/59; PULSE 97; RESP 15; O2SAT 100
[2021-08-18 05:27] LABS: HIV 1/2 Ab P24 Ag Result Negative (Negative)
== END 2021-08-18 05:25 | disposition home or self-care (01) ==
PROVIDERS: Emergency Provider Emergency Medicine
DX: Z04.41 Encounter for examination and observation following alleged adult rape (principal); F90.9 Attention-deficit hyperactivity disorder, unspecified type; F32.A Depression, unspecified; Z87.442 Personal history of urinary calculi; F17.290 Nicotine dependence, other tobacco product, uncomplicated
CPT/HCPCS: 36415; 80053; 85025; 85610; 85730; 86703; 96372; 99285; A9270; G0432; J0696

== ENCOUNTER 2022-04-15 09:52 | Outpatient (CLI) | payer OTHER, SELFPAY ==
--- NOTE | ~2022-04-15 | XR_ITS ---
EXAMINATION: XR cervical spine 4-5V DATE: 04/15/2022 10:19 INDICATION: Neck pain. TECHNIQUE: 5 views of cervical spine were obtained. COMPARISON: CT cervical spine 01/20/2020 FINDINGS: There is 7 degrees dextrocurvature of cervical spine. Vertebral body heights and interverte bral disc heights are normal. At C7-T1, there is severe facet joint osteoarthritis. No central canal stenosis or prevertebral soft tissue swelling. IMPRESSION: 1. Facet joint osteoarthritis at C7-T1. Reviewed, dictated and finalized at location A.
== END 2022-04-15 09:53 | disposition home or self-care (01) ==
PROVIDERS: PCP Family Medicine; Visit Provider Nurse Practitioner Gerontology
DX: M54.2 Cervicalgia (principal)
CPT/HCPCS: 72050

== ENCOUNTER 2022-08-12 11:47 | Emergency (ER) | payer OTHER, SELFPAY ==
[2022-08-12 11:55] VITALS: BP 114/65; PULSE 88; RESP 16; TEMP 36.7; O2SAT 99
--- NOTE | 2022-08-12 12:09 | ED.URI ---
HPI - URI/Sore Throat General Chief Complaint: Upper Respiratory Infection Stated Complaint: Sore Throat Time Seen by Provider: 08/12/22 12:00 Source: patient Mode of arrival: ambulatory Limitations: no limitations History of Present Illness HPI Narrative: Ms. Robles is a 32-year-old female patient presenting to clinic today with complaints of sore throat x3 days. She also reports some nasal drainage going to back or throat. She denies any fever or chills. MD elicited complaint: sore throat and nasal congestion Related Data Home Medications Medication Instructions Recorded Confirmed desogestrel-e.estradiol 0.15 1 tablet DAILY 08/09/19 08/12/22 mg-0.02 mg(21)/e.estrad 0.01 mg(5) tablet (Viorele (28)) omeprazole 40 mg capsule,delayed 40 mg PO BID 05/01/21 08/12/22 release bupropion HCl 150 mg 24 hr tablet, 150 mg PO QAM 03/31/22 08/12/22 extended release (Wellbutrin XL) vilazodone 40 mg tablet (Viibryd) 40 mg PO DAILY 03/31/22 08/12/22 Allergies Allergy/AdvReac Type Severity Reaction Status Date / Time No Known Allergies Allergy Verified 08/12/22 11:58 Review of Systems Review of Systems: Pertinent positives per HPI. Patient denies any fever, chills, rash, headache, visual changes, dizziness, cough, shortness of breath, chest pain, palpitations, nausea, vomiting, diarrhea, constipation, abdominal pain, or any urinary issues. PMFSH Past Medical History Medical History ADHD Depression Kidney stones Ovarian cyst Surgical History Surgical History History of urethral stent Status post surgical removal of both fallopian tubes Social History Social History Social History: Smoking status: Current every day smoker Tobacco type: e-cigarettes/vaping Second hand tobacco smoke exposure: No Additional smoking assessment comments: vapes marijuana Alcohol intake: current Drinks per week: 2 Alcohol use details: twice a month Substance use: never Substance use type: marijuana, painkillers and prescription drug Gender identity (if verbalized by the patient): Female Spiritual care concerns: No Comments At the time of my signature, I reviewed and agree with the nursing past medical, surgical, social, and family history. There is no relevant family history pertinent to the patient complaint. Exam Narrative: General: Well-developed, well nourished, in no apparent distress Head: Normocephalic, atraumatic Eyes: Pupils equally round and reactive to light bilaterally, EOM intact, sclera and conjunctive clear, no discharge, lids normal Ears: TMs intact and clear, ear canals clear, no drainage, grossly hearing normal. Nose: Nares patent, clear nasal discharge, no inflammation, no sinus tenderness. Mouth: Oral pharynx without lesions or masses, good dentition, MMM. oropharynx red, postnasal drip Neck: Supple, trachea midline, no enlargement of anterior or posterior cervical nodes, no thyroid masses or goiter palpable. Cardio: Regular rate and rhythm, s1 and s2 normal, no murmur appreciated. Resp: Clear to auscultation bilaterally, no rhonchi, rales, wheezing or rubs Course Course Emergency Course: Portions of this record may have been created with voice recognition software. Level of Care: Express Care Visit Vital Signs Vital signs: Vital Signs Temperature 36.7 C 08/12/22 11:55 Pulse Rate 88 08/12/22 11:55 Respiratory Rate 16 08/12/22 11:55 Blood Pressure 114/65 08/12/22 11:55 Pulse Oximetry 99 08/12/22 11:55 Oxygen Delivery Room Air 08/12/22 11:55 Temperature 36.7 C 08/12/22 11:55 Pulse Rate 88 08/12/22 11:55 Respiratory Rate 16 08/12/22 11:55 Blood Pressure 114/65 08/12/22 11:55 Pulse Oximetry 99 08/12/22 11:55 Oxygen Delivery Room Air 07/16
== END 2022-08-12 12:29 | disposition home or self-care (01) ==
PROVIDERS: Emergency Provider Nurse Practitioner Family; PCP Family Medicine
DX: J06.9 Acute upper respiratory infection, unspecified (principal); J02.9 Acute pharyngitis, unspecified; F17.290 Nicotine dependence, other tobacco product, uncomplicated; F12.90 Cannabis use, unspecified, uncomplicated; F32.A Depression, unspecified
CPT/HCPCS: 87081; 87880; 99213; G0463

== ENCOUNTER 2022-10-29 00:07 | Day surgery (SDC) | payer OTHER, SELFPAY ==
[2022-10-20 11:01] VITALS: BMI 32.5
[2022-10-29 10:24] VITALS: BP 110/54; PULSE 74; RESP 16; TEMP 36; O2SAT 100
[2022-10-29] MEDS: LACTATED RINGERS 1,000 ML 150 ML IV CONT (10:26)
--- NOTE | 2022-10-29 10:36 | WPDANESEPPF ---
Anes - Initial Pre Proc Eval Procedure: Operation Date: 10/29/22 11:30 Proposed Procedures p Colonoscopy - Geovanni Toure MD Date/Time: 10/29/22 10:36 Surgeon: Geovanni Toure MD Pre Op Diagnosis: Change in Bowel Habits Patient Data Age: 32 Gender: F Height: 1.63 m Weight: 85.1 kg Last Vital Signs Temp 36.0 C L 10/29/22 10:24 Pulse 74 10/29/22 10:24 Resp 16 10/29/22 10:24 BP 110/54 L 10/29/22 10:24 Pulse Ox 100 10/29/22 10:24 O2 Del Method Room Air 10/29/22 10:24 Allergies Allergy/AdvReac Type Severity Reaction Status Date / Time No Known Allergies Allergy Verified 10/29/22 10:23 Home Medications Medication Instructions Recorded Confirmed Type desogestrel-e.estradiol 0.15 1 tablet DAILY 08/09/19 10/29/22 History mg-0.02 mg(21)/e.estrad 0.01 mg(5) tablet (Viorele (28)) vilazodone 40 mg tablet (Viibryd) 40 mg PO DAILY 03/31/22 10/29/22 History bupropion HCl 300 mg 24 hr tablet, 300 mg PO DAILY 10/20/22 10/29/22 History extended release cariprazine 3 mg capsule (Vraylar) 3 mg PO DAILY 10/20/22 10/29/22 History omeprazole 20 mg capsule,delayed 20 mg PO DAILY 10/20/22 10/29/22 History release mthmylo-unecxfgnzuwbq-ksrubazt 250 1 tablet PO Q4-6H PRN Migraine 10/29/22 10/29/22 History mg-250 mg-65 mg tablet (Excedrin Headache Migraine) Patient hx anesthesia problems: none Family hx anesthesia problems: none Results Review: All pre-operative results and documents have been reviewed as part of the pre-operative evaluation. [facility] Past Medical History Medical History ADHD Depression Kidney stones Ovarian cyst Surgical History Surgical History History of urethral stent Status post surgical removal of both fallopian tubes Social History Social History Social History: Smoking status: Never smoker Tobacco type: e-cigarettes/vaping Second hand tobacco smoke exposure: No Additional smoking assessment comments: vapes marijuana Alcohol intake: current Drinks per week: 2 Alcohol use details: occasional use, couple drinks per month Substance use: current Substance use type: marijuana Other substance usage details: once weekly Living arrangements: alone Occupation/Education: occupation Gender identity (if verbalized by the patient): Female Spiritual care concerns: No Anes - Eval Final PreProcedure Day of Procedure 10/29/22 10:36 Patient weight: obese Heart: regular rate and rhythm Lungs: clear to auscultation Airway: Mallampati scale class II Last oral intake: >/= 8 hours ASA classification: II Emergent: no Anesthetic plan: proceed Anesthesia type and monitoring: general GIVS and standard monitoring Results Review: All pre-operative results and documents have been reviewed as part of the pre-operative evaluation. Informed Consent: The patient's anesthetic plan and its attendant risks and benefits were discussed with the patient/family/POA. Questions were solicited and answers provided to the satisfaction of the patient/family/POA.
--- NOTE | 2022-10-29 10:43 | PM.HPGS ---
History of Present Illness History of Present Illness Consent: Risks, benefits, and alternatives have been discussed and questions answered. Patient agrees to proceed with procedure. Chief complaint: Change in Bowel Habits Narrative: Rachael Robles is a 32 year old female with change in bowel habits for 6 months, loose stools and sometimes even accidents, had colonoscopy about 3 years ago but does not remember reason. Review of Systems Constitutional: Constitutional: Denies headache(s) and Denies weakness Eyes: Eyes: Denies blurry vision ENT: Reports Normal hearing present, Denies headache(s) and Denies neck pain Cardiovascular: Cardiovascular: Denies chest pain and Denies dyspnea Respiratory: Respiratory: Denies dyspnea Gastrointestinal: Gastrointestinal: Reports no additional gastrointestinal complaints Genitourinary: Genitourinary: Denies dysuria Musculoskeletal: Musculoskeletal: Denies neck pain Integumentary/Breasts: Skin/Breast: Denies dry skin Neurologic: Reports Normal hearing present, Denies headache(s) and Denies weakness Psychiatric: Psychiatric: Denies anxiety Endocrine: Endocrine: Denies change in body appearance Hematologic/Lymphatic: Hematologic/Lymphatic: Denies easy bleeding Allergic/Immunologic: Allergic/Immunologic: Denies urticaria PMFSH Past Medical History Medical History ADHD Depression Kidney stones Ovarian cyst Surgical History Surgical History History of urethral stent Status post surgical removal of both fallopian tubes Social History Social History Social History: Smoking status: Never smoker Tobacco type: e-cigarettes/vaping Second hand tobacco smoke exposure: No Additional smoking assessment comments: vapes marijuana Alcohol intake: current Drinks per week: 2 Alcohol use details: occasional use, couple drinks per month Substance use: current Substance use type: marijuana Other substance usage details: once weekly Living arrangements: alone Occupation/Education: occupation Gender identity (if verbalized by the patient): Female Spiritual care concerns: No Meds Home Medications and Allergies Home Medications Medication Instructions Recorded Confirmed Type desogestrel-e.estradiol 0.15 1 tablet DAILY 08/09/19 10/29/22 History mg-0.02 mg(21)/e.estrad 0.01 mg(5) tablet (Viorele (28)) vilazodone 40 mg tablet (Viibryd) 40 mg PO DAILY 03/31/22 10/29/22 History bupropion HCl 300 mg 24 hr tablet, 300 mg PO DAILY 10/20/22 10/29/22 History extended release cariprazine 3 mg capsule (Vraylar) 3 mg PO DAILY 10/20/22 10/29/22 History omeprazole 20 mg capsule,delayed 20 mg PO DAILY 10/20/22 10/29/22 History release foxrcsi-pkypnjivryyzs-wfucnmub 250 1 tablet PO Q4-6H PRN Migraine 10/29/22 10/29/22 History mg-250 mg-65 mg tablet (Excedrin Headache Migraine) Allergies Allergy/AdvReac Type Severity Reaction Status Date / Time No Known Allergies Allergy Verified 10/29/22 10:23 Vital Signs Vital Signs - 24 hr 10/29/22 10:24 Temperature 96.8 F L Pulse Rate 74 Respiratory Rate 16 Blood Pressure 110/54 L Pulse Oximetry 100 Oxygen Delivery Room Air Exam Const: General: comfortable and no acute distress HENMT: Face/Nose/Sinus: Normal nares present Eyes: General: appearance normal, both eyes and all related structures Neck: Neck: no JVD Resp: Auscultation: clear to auscultation bilaterally Cardio: Rate: regular rate Rhythm: regular rhythm GI: Inspection: non-distended GI Palp: Yes Soft to palpation Skin: General skin exam: normal color Neuro: General: gait normal Speech: normal speech Extrem: General: normal to inspection Psych: Mental Status: mental status grossly normal Assessment and Plan Assessment and plan
[2022-10-29 10:59] VITALS: BP 106/73; PULSE 64; RESP 13; O2SAT 100
[2022-10-29 11:09] VITALS: BP 112/78; PULSE 60; RESP 15; O2SAT 100
[2022-10-29 11:19] VITALS: BP 101/63; PULSE 61; RESP 18; O2SAT 100
== END 2022-10-29 11:32 | disposition home or self-care (01) ==
PROVIDERS: PCP Family Medicine; Visit Provider Internal Medicine Gastroenterology
PROC: 0DJD8ZZ Inspection of Lower Intestinal Tract, Via Natural or Artificial Opening Endoscopic (ICD-10-PCS; CPT 45378; principal; 2022-10-29 11:30)
DX: R19.7 Diarrhea, unspecified (principal); F90.9 Attention-deficit hyperactivity disorder, unspecified type; F32.A Depression, unspecified; F12.90 Cannabis use, unspecified, uncomplicated; E66.9 Obesity, unspecified; Z68.32 Body mass index [BMI] 32.0-32.9, adult
CPT/HCPCS: 45380; 88305; J2704; J7120

== ENCOUNTER 2023-09-09 00:45 | Day surgery (SDC) | payer OTHER, SELFPAY ==
[2023-08-31 13:06] VITALS: BMI 30.9
--- NOTE | 2023-08-31 13:07 | PC.NURSE ---
Report to the Outpatient Waiting Room, entrance under the green pavilion located off [facility], at time _0600_ on date _[id number]_. Planned Procedure Time: _0730_. Time changes happen often and if your time is changed the preop area will call you the afternoon before. - You and your visitor will be asked to self-screen and do not enter if you have any COVID symptoms. - A mask is optional within the hospital at this time. Patients may have clear liquids (water, carbonated beverages, clear teas, apple juice) until 3 hours prior to surgery with a maximum of 20 ounces. - No food from midnight until time of surgery Take the following medications with a SIP of water the morning of surgery: Bupropion, Vraylar and Vilazadone DO NOT STOP ANY OF YOUR OTHER PRESCRIPTION MEDICATIONS PRIOR TO SURGERY ?EXCEPT THE FOLLOWING Medications to discontinue per physician None Date to take last dose Please no make-up, nail montserratian, hairspray, perfume, deodorant, or body powder the day of surgery. No jewelry (including any body piercings) or valuables the day of surgery, leave them at home. Please take a shower or bath the night before, or the morning of, surgery with an antibacterial soap. Wear comfortable, loose fitting clothing. - Jewelry must be removed prior to entering the operating room. Rings and piercings that are not removed may be cut off. - The hospital will not accept responsibility for valuables. - Please leave all valuables, including medications, at home the day of surgery. If you are going home after surgery, a licensed motor pool driver must drive you home. - NO public transportation without another adult if you receive anesthesia. - We recommend that an adult stay with you for 24 hours following discharge. - We also recommend that you do not drive, make important decision, drink alcoholic beverages, or take any drugs that were not prescribed by your health care provider for at least 24 hours after your discharge time. Follow any additional instructions given to you from your surgeon. If you or anyone in your household have experienced Covid symptoms in the past week, please notify your surgeon or the nurse liaison at the phone number below for possible testing. Telephone instructions given to __Rachael__and asked if any additional questions and then verbalized understanding. Patient advised to call surgeon office or pre surgery nurse liaison [phone] if any additional questions.
--- NOTE | 2023-09-06 12:57 | PM.IMHP ---
H&P: HPI History of Present Illness Date/Time: 09/06/23 12:57 Chief Complaint: Stress urinary incontinence Narrative: This is the 33-year-old 2 para 2 who is admitted for tension-free vaginal tape. She complains of loss of urine coughing laughing and sneezing. She fits is socially embarrassing would like to have this taken care. She understands she should never get following this risks and benefits reviewed including but not exclusive of , aspiration and a cone bleeding, transfusion, perforation injury to bowel, bladder, ureter, or other internal organs with need for open laparotomy. The need for prolonged catheterization the possibility of injury to the bladder with mesh Center was reviewed. She had all questions answered and asked to proceed PMFSH Past Medical History Medical History ADHD Depression Kidney stones Ovarian cyst Surgical History Surgical History History of urethral stent Status post surgical removal of both fallopian tubes Social History Social History Social History: Smoking status: Never smoker Tobacco type: e-cigarettes/vaping Second hand tobacco smoke exposure: No Additional smoking assessment comments: vapes marijuana Alcohol intake: current Drinks per week: 2 Alcohol use details: occasional use, couple drinks per month Substance use: current Substance use type: marijuana Other substance usage details: once weekly Living arrangements: alone Occupation/Education: occupation Gender identity (if verbalized by the patient): Female Spiritual care concerns: No Meds Home Medications and Allergies Home Medications Medication Instructions Recorded Confirmed Type desogestrel-e.estradiol 0.15 1 tablet DAILY 08/09/19 08/31/23 History mg-0.02 mg(21)/e.estrad 0.01 mg(5) tablet (Viorele (28)) vilazodone 40 mg tablet (Viibryd) 40 mg PO DAILY 03/31/22 08/31/23 History bupropion HCl 300 mg 24 hr tablet, 300 mg PO DAILY 10/20/22 08/31/23 History extended release cariprazine 3 mg capsule (Vraylar) 3 mg PO DAILY 10/20/22 08/31/23 History omeprazole 20 mg capsule,delayed 20 mg PO DAILY 10/20/22 08/31/23 History release Allergies Allergy/AdvReac Type Severity Reaction Status Date / Time No Known Allergies Allergy Verified 08/31/23 13:01 Exam Const: General: cooperative, healthy appearing and comfortable Nutritional Appearance: average body habitus Orientation/consciousness: oriented to person, oriented to place and oriented to time Resp: Effort & Inspection: normal respiratory effort Cardio: Rate: regular rate Rhythm: regular rhythm Heart sounds: S1 normal heart sound present and S2 normal heart sound present GI: Inspection: normal to inspection Auscultation: normal bowel sounds : External Female Exam: normal external appearance and other (Urethra hyper mobile with Valsalva) Speculum Exam - Vagina: normal appearance of the vagina Speculum Exam - Cervix: normal appearance of the cervix Bimanual exam- vagina & uterus: enlarged Bimanual Exam- Adnexa, other: normal adnexae Assessment and Plan Assessment and plan (1) Overflow stress urinary incontinence in female: Code(s): N39.3 - Stress incontinence (female) (male); N39.490 - Overflow incontinence Status: Acute Plan Tension-free vaginal tape and cystoscopy
[2023-09-09] VITALS (8 sets, daily range): BP systolic 104–126; BP diastolic 63–85; PULSE 65–108; RESP 14–18; TEMP 36.6–36.8; O2SAT 99–100
--- NOTE | 2023-09-09 06:31 | WPDHPUPDATE1 ---
History and Physical Update Update Date/Time: 09/09/23 06:31 History and Physical has been reviewed, including an updated exam of the patient. There are NO changes in the patient's condition. Risks, benefits, and alternatives have been discussed and questions answered. Patient agrees to proceed with procedure.
--- NOTE | 2023-09-09 06:46 | P.PNAN_ITS ---
Anes - Initial Pre Proc Eval Procedure: Operation Date: 09/09/23 07:30 Proposed Procedures p Tension Vaginal Free Taping - Jeff Abbott MD Date/Time: 09/09/23 06:46 Surgeon: Jeff Abbott MD Pre Op Diagnosis: janine Patient Data Age: 33 Gender: F Height: 1.63 m Weight: 82.4 kg Allergies Allergy/AdvReac Type Severity Reaction Status Date / Time No Known Allergies Allergy Verified 09/09/23 05:58 Home Medications Medication Instructions Recorded Confirmed Type desogestrel-e.estradiol 0.15 1 tablet DAILY 08/09/19 09/09/23 History mg-0.02 mg(21)/e.estrad 0.01 mg(5) tablet (Viorele (28)) vilazodone 40 mg tablet (Viibryd) 40 mg PO DAILY 03/31/22 09/09/23 History bupropion HCl 300 mg 24 hr tablet, 300 mg PO DAILY 10/20/22 09/09/23 History extended release cariprazine 3 mg capsule (Vraylar) 3 mg PO DAILY 10/20/22 09/09/23 History omeprazole 20 mg capsule,delayed 20 mg PO DAILY 10/20/22 09/09/23 History release hydrocodone 5 mg-acetaminophen 325 1 tablet PO Q4H PRN pain #20 tabs 09/09/23 Rx mg tablet Patient hx anesthesia problems: none Family hx anesthesia problems: none Results Review: All pre-operative results and documents have been reviewed as part of the pre- operative evaluation. PMFSH Past Medical History Medical History ADHD Depression Kidney stones Ovarian cyst Surgical History Surgical History History of urethral stent Status post surgical removal of both fallopian tubes Social History Social History Social History: Smoking status: Never smoker Tobacco type: e-cigarettes/vaping Second hand tobacco smoke exposure: No Additional smoking assessment comments: vapes marijuana Alcohol intake: current Drinks per week: 2 Alcohol use details: occasional use, couple drinks per month Substance use: current Substance use type: marijuana Other substance usage details: once weekly Living arrangements: alone Occupation/Education: occupation Gender identity (if verbalized by the patient): Female Spiritual care concerns: No Anes - Eval Final PreProcedure Day of Procedure 09/09/23 06:46 Patient weight: obese Heart: regular rate and rhythm Lungs: clear to auscultation Airway: Mallampati scale class II Neurological: alert and oriented Last oral intake: >/= 8 hours ASA classification: II Emergent: no Anesthetic plan: proceed Anesthesia type and monitoring: general LMA and standard monitoring Results Review: All pre-operative results and documents have been reviewed as part of the pre- operative evaluation. Informed Consent: The patient's anesthetic plan and its attendant risks and benefits were discussed with the patient/family/POA. Questions were solicited and answers provided to the satisfaction of the patient/family/POA.
[2023-09-09] MEDS: LACTATED RINGERS 1,000 ML 30 ML IV CONT (06:51)
[2023-09-09] MEDS: SCOPOLAMINE 1 MG PATCH 1 PATCH TRANSDERM (06:51)
[2023-09-09] MEDS: ceFAZolin 2 GM/D5W 50 ML 2 GM/50 ML BAG IVPB (07:30)
--- NOTE | 2023-09-09 07:49 | SUR.OPER ---
Patient has nose ring in. Dr. Gerardo Abbott aware and patient signed [facility] waiver. Okay to proceed per Dr. Gerardo Abbott.
[2023-09-09] MEDS: KETOROLAC 30 MG/ML VIAL (*BKC) IV PUSH (07:57)
--- NOTE | 2023-09-09 08:13 | P.OP_ITS ---
Procedure Note - Detailed Date of Procedure 09/09/23 Pre-op Diagnosis janine Post-op Diagnosis Same Procedure Performed Tension-free vaginal tape cystoscopy Surgeon Jeff Abbott MD Anesthesia General Indications 30 for stress urinary incontinence Findings urethra was hypermobile. Description of Procedure Use prepped draped sterile fashion placed dorsal lithotomy position. Anesthesia weighted speculum placed in posterior fornix. The 18 [place] catheter was placed. A mid suburethral incision was made bladder space was blunt dissection. The urethral guide was placed retracted laterally the right ret ropubic better bladder spaces entered a 45 degree angle of 35 through the skin. The urethra was retracted to the opposite side and this was repeated on the contralateral side. The catheter was removed and the 70degree cystoscope inserted. No injury was seen. This was brought up to the level after the plastic removed to and open p.m. clamped. Sat flat against urethra. The 70degree cystoscope was removed. Catheter was replaced. The incisions were closed with 3-0 Vicryl. The skin was closed with glue. The catheter was removed the patient was awakened. She went to recovery in satisfactory condition. All sponge, needle, instrument counts were correct. There were no immediate complications Estimated Blood Loss 50 Drains No Packing No Pathology None sent Complications No immediate complications Condition Stable Disposition PACU
[2023-09-09] MEDS: fentaNYL CITRATE INJ (*CRX) 100 MCG/2 ML VIAL 25 MCG IV PUSH ×3 (08:39→09:05)
[2023-09-09] MEDS: oxyCODONE HCL (*CRX) 5 MG TAB IR PO (09:25)
== END 2023-09-09 10:20 | disposition home or self-care (01) ==
PROVIDERS: PCP Family Medicine; Visit Provider Obstetrics & Gynecology
PROC: 0TSD0ZZ Reposition Urethra, Open Approach (ICD-10-PCS; CPT 57288; principal; 2023-09-09 07:30)
DX: N39.3 Stress incontinence (female) (male) (principal); N39.490 Overflow incontinence; F90.9 Attention-deficit hyperactivity disorder, unspecified type; F32.A Depression, unspecified; F12.90 Cannabis use, unspecified, uncomplicated; E66.9 Obesity, unspecified; Z68.31 Body mass index [BMI] 31.0-31.9, adult
CPT/HCPCS: 57288; 36415; 86850; 86900; 86901; A9270; C1771; J0690; J1100; J1200; J1885; J2250; J2405; J2704; J3010; J7030; J7120

== ENCOUNTER 2024-02-13 14:49 | Emergency (ER) | payer OTHER, SELFPAY ==
--- NOTE | ~2024-02-13 | XR_ITS ---
EXAMINATION: XR chest 2V Exam Date/Time: 02/13/2024 15:10 CDT HISTORY: cp LEFT SIDED CHEST PAIN X 4 DAYS Comparison: 08/09/2019. RESULT: Lines, tubes, and devices: None. Lungs and pleura: Clear. Cardiomediastinal silhouette: Stable. Other: No acute osseous or upper abdominal finding. IMPRESSION: No acute cardiopulmonary process. Reviewed, dictated and finalized at location K.
--- NOTE | 2024-02-13 14:50 | ECG_ITS ---
Test Date: 2024-02-13 14:57:20 Measurements Intervals [place] Rate: 102 P: 67 AK: 120 QRS: 85 QRSD: 90 T: 32 QT: 361 QTc: 471 Interpretive Statements SINUS TACHYCARDIA LEFT ATRIAL ENLARGEMENT INCOMPLETE RIGHT BUNDLE BRANCH BLOCK BASELINE ARTIFACT- I, II, III, AVR, AVL, AVF, V1-V3 BORDERLINE ECG No previous ECG available for comparison Electronically Signed On 02-13-2024 15:13:56 CDT by Francisco Javier Shaw D.O.
--- NOTE | 2024-02-13 14:52 | ED.CHESTPAIN ---
HPI - Chest Pain General Chief Complaint: Chest Pain <ZULY Hyman Last Filed: 02/13/24 15:01> Stated Complaint: chest pain <ZULY Hyman Last Filed: 02/13/24 15:01> Time Seen by Provider: 02/13/24 14:52 <ZULY Hyman Last Filed: 02/13/24 15:01> Focused HPI: Patient is a 34 y/o female who presents to the ED with c/o CP. Patient reports having intermittent L sided CP into her L axillary region since 4 days ago. States pain is intermittent. Denies aggravation of deep breathing, movement. Has not taken anything for the pain. No recent strenuous activity or heavy lifting. Reports intermittent shortness of breath, but states this has been an ongoing issue for the past 1 year. Denies pain or swelling in legs. Denies cough or cold sx's. Denies previous hx of blood clots, CAD. Reports FHx of CAD. Seen at PCP office today and referred to the ED for further evaluation. Patient used cocaine consistently (daily) for the past 3 years. States she has not used in the past 2 weeks. GENERAL: Well-appearing, obese with BMI of 30.6, and in no acute distress. HEAD: Normocephalic, atraumatic. CHEST: Clear to auscultation. ?No respiratory distress. HEART: Regular rate and rhythm.? MSK: TTP over L upper anterior chest wall, reproducing pain. NEURO: ?Alert and oriented x3. Patient screened in triage and initial orders placed.? ?Additional care and disposition to be based upon?diagnostic testing and treatment. <ZULY Hyman Last Filed: 02/13/24 15:01> Source: patient and old records reviewed <ZULY Hyman Filed: 02/13/24 15:01> Mode of arrival: ambulatory <ZULY Hyman Last Filed: 02/13/24 15:01> Limitations: no limitations <ZULY Hyman Filed: 02/13/24 15:01> Related Data Home Medications: Home Medications Medication Instructions Recorded Confirmed desogestrel-e.estradiol 0.15 1 tablet DAILY 08/09/19 02/13/24 mg-0.02 mg(21)/e.estrad 0.01 mg(5) tablet (Viorele (28)) vilazodone 40 mg tablet (Viibryd) 40 mg PO DAILY 03/31/22 02/13/24 cariprazine 3 mg capsule (Vraylar) 3 mg PO DAILY 10/20/22 02/13/24 omeprazole 20 mg capsule,delayed 20 mg PO DAILY 10/20/22 02/13/24 release bupropion HCl 300 mg 24 hr tablet, 450 mg PO DAILY 02/13/24 02/13/24 extended release propranolol 10 mg tablet 10 mg PO Q12H PRN 02/13/24 02/13/24 <ZULY Hyman Last Filed: 02/13/24 15:01> Allergies/Adverse Reactions: Allergies Allergy/AdvReac Type Severity Reaction Status Date / Time No Known Allergies Allergy Verified 02/13/24 13:06 <Tracee Alvarez PA-C - Last Filed: 02/13/24 15:01> Review of Systems Review of Systems: CONSTITUTIONAL: Denies fever CARDIOVASCULAR: Reports chest pain. Denies palpitations, or edema. RESPIRATORY: Denies cough or dyspnea. <Bianca Becerril PA-C - Last Filed: 02/13/24 17:51> All systems reviewed & are unremarkable except as noted in HPI and below <ZULY Cesar Last Filed: 02/13/24 17:51> [facility] Past Medical History Medical History: Medical History ADHD Depression Kidney stones Ovarian cyst <ZULY Hyman Last Filed: 02/13/24 15:01> Surgical History Surgical History: Surgical History History of urethral stent Status post surgical removal of both fallopian tubes <ZULY Hyman Last Filed: 02/13/24 15:01> Family History Family History: Family History (Updated 02/13/24 @ 15:28 by Sheila Choi PA-C) Mother , Idiopathic pulmonary fibrosis No problems noted. <Tracee Alvarez PA-C - Last Filed: 02/13/24 15:01> Social History Social History: Social History (Updated 02/13/24 @ 13:13 by Hiral Valverde) Social History: Marraj
[2024-02-13 14:54] VITALS: BP 139/77; PULSE 97; RESP 17; TEMP 36.6; O2SAT 99
[2024-02-13] MEDS: ASPIRIN 81 MG CHEWABLE TABLET 324 MG PO (15:00)
[2024-02-13 15:14] LABS: Basophils Absolute Auto 0.1 K/mm3 (0.0-0.1); Basophils Percent Auto 0.5 % (0.2-1.2); Eosinophils Absolute Auto 0.2 K/mm3 (0-0.3); Eosinophils Percent Auto 1.5 % (0-4.4); Hematocrit 43.9 % (37.0-47.0); Hemoglobin 14.3 g/dL (12.0-15.0); Immature Granulocyte Absolute 0.03 K/mm3 (0.00-0.031); Immature Granulocyte Percent A 0.3 % (0-0.5); Lymphocytes Absolute Auto 3.98 K/mm3 (0.9-3.2); Lymphocytes Percent Auto 39.6 % (18.3-44.2); Mean Corpuscular HGB Conc 32.6 g/dl (32-36); Mean Corpuscular Hemoglobin 27.9 pg (26-34); Mean Corpuscular Volume 85.6 fl (80-100); Monocytes Absolute Auto 0.7 K/mm3 (0.1-0.6); Monocytes Percent Auto 6.5 % (2.6-8.5); Neutrophils Absolute Auto 5.2 K/mm3 (1.3-6.7); Neutrophils Percent Auto 51.6 % (45.5-73.1); Platelet Count Result 296 k/mm3 (150-375); Red Blood Count 5.13 M/mm3 (4.2-5.4); Red Cell Distribution Width 13.1 % (11.5-14.5)
[2024-02-13 15:25] LABS: Alanine Aminotransferase 20 U/L (6-35); Albumin Level 4.6 g/dL (3.5-5.1); Alkaline Phosphatase 95 U/L (38-126); Anion Gap 9 mmol/L (4-12); Aspartate Amino Transferase 24 U/L (14-36); Bilirubin,Total 0.4 mg/dL (0.2-1.3); Blood Urea Nitrogen 14 mg/dL (7-17); Calcium 9.5 mg/dL (8.4-10.2); Carbon Dioxide 22 mmol/L (22-30); Chloride 107 mmol/L (98-107); Estimated CRCL calculation 88 ml/min; Estimated Glomerular Filt Rate > 60; Glucose 91 mg/dL (65-110); Lipase 327 U/L (23-300); Sodium 138 mmol/L (137-145)
[2024-02-13 15:26] LABS: Partial Thromboplastin Time 27.7 Seconds (22.3-36.8)
[2024-02-13 15:27] LABS: INR 1.1; Prothrombin Time 14.5 Seconds (11.1-14.7)
[2024-02-13 15:31] LABS: D Dimer < 0.27 ug/mL (<0.48)
[2024-02-13 15:36] LABS: Troponin I < 0.012 ng/mL (0.000-0.034)
[2024-02-13 16:48] VITALS: O2SAT 100
[2024-02-13 16:50] VITALS: BP 123/73
[2024-02-13 18:00] LABS: Appearance Urine Clear (Clear); Bilirubin Urine Negative (Negative); Blood Urine Negative (Negative); Color Urine Yellow (Yellow); Glucose Urine UA Negative (Negative); Ketones Urine Negative (Negative); Leukocyte Esterase Ur Negative LEU/UL (Negative); Nitrate Urine Negative (Negative); Protein Urine Negative (Negative); Specific Grav Ur 1.022 (1.001-1.035); Urobilinogen Urine 0.2 mg/dL (<2.0); pH Urine 5.5 (5.0-9.0)
--- NOTE | 2024-02-13 18:04 | PC.NURSE ---
triage nurse CORAZON Wyman notifies me that patient was seen walking out of ER without notifying staff prior to. Due to this, we were unable to educate patient of symptoms warranting a return to the ED. patient did not have IV in place upon leaving.
[2024-02-13 18:06] LABS: Add Urine Microscopic? NO
[2024-02-13 18:20] LABS: Amphetamine Screen Urine Positive (Negative); Barbiturate Screen Urine Negative (Negative); Benzodiazepines Screen Urine Negative (Negative); Cannabinoid Screen Urine Positive (Negative); Cocaine Screen Urine Negative (Negative); Methadone Screen Urine Negative (Negative); Opiate Screen Urine Negative (Negative); Phencyclidine Screen Urine Negative (Negative)
== END 2024-02-13 18:05 | disposition left against medical advice (07) ==
PROVIDERS: Emergency Medicine; Physician Assistant; Emergency Provider Physician Assistant; PCP Family Medicine
DX: R07.89 Other chest pain (principal)
CPT/HCPCS: 36415; 71046; 80053; 80307; 81003; 83690; 84484; 85025; 85380; 85610; 85730; 93005; 99284; A9270

== ENCOUNTER 2024-02-24 00:07 | Emergency (ER) | payer OTHER, SELFPAY ==
[2024-02-24 00:15] VITALS: BP 134/74; PULSE 111; RESP 18; TEMP 36.7; O2SAT 100
--- NOTE | 2024-02-24 00:24 | PC.NURSE ---
our lab said they can run a urine drug send out to [employer] . test code [id number]
--- NOTE | 2024-02-24 00:48 | PC.NURSE ---
spoke with [facility]p [facility] - lab reference order placed for [facility] send out.
[2024-02-24 00:51] LABS: Amphetamine Screen Urine Positive (Negative); Barbiturate Screen Urine Negative (Negative); Benzodiazepines Screen Urine Negative (Negative); Cannabinoid Screen Urine Positive (Negative); Cocaine Screen Urine Positive (Negative); Methadone Screen Urine Negative (Negative); Opiate Screen Urine Negative (Negative); Phencyclidine Screen Urine Negative (Negative)
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
== END 2024-02-24 01:15 | disposition left against medical advice (07) ==
PROVIDERS: Physician Assistant; Emergency Provider Emergency Medicine; PCP Family Medicine
DX: F41.9 Anxiety disorder, unspecified (principal); F14.10 Cocaine abuse, uncomplicated; F15.10 Other stimulant abuse, uncomplicated; F90.9 Attention-deficit hyperactivity disorder, unspecified type; F32.A Depression, unspecified; Z87.442 Personal history of urinary calculi; Z79.899 Other long term (current) drug therapy; Z79.3 Long term (current) use of hormonal contraceptives
CPT/HCPCS: 80307; 80346; 99283; G0480